=== PATIENT | female | born 1995 | race Caucasian/White ===

== ENCOUNTER 2022-01-21 06:14 | Emergency (ER) | payer MEDICAID ==
[~2022-01-21] VITALS: Ht 154.9 cm; Wt 63.5 kg
[2022-01-21 06:20] VITALS: BP_SYST 73; BP_SYST 89; BP_DIAS 58
--- NOTE | 2022-01-21 06:20 | NUR ---
TO BED VIA W/C
--- NOTE | 2022-01-21 06:44 | NUR ---
26 YO F BIBS W C/O OF SORE THROAT FOR 3 DAYS. DENIES COUGH, N/V/D. NO FEVER CURRENTLY. TOOK TYLENOL YESTERDAY WITH NO RELIF. PMH: DENIES MEDS: DENIES NKDA
[2022-01-21] MEDS ORDERED: BENZ-300 PO (06:55)
[2022-01-21] MEDS ORDERED: AZIT250T4 PO (06:55)
[2022-01-21] MEDS ORDERED: PRED50TA2 PO (06:55)
--- NOTE | 2022-01-21 07:08 | NUR ---
Patient discharged with v/s stable. Written and verbal after care instructions given and explained. Patient alert, oriented and verbalized understanding of instructions. Ambulatory with steady gait. All questions addressed prior to discharge. ID band removed. Patient advised to follow up with PMD. Rx of Z PACK, CEPACOL, PREDNISONE given. Patient educated on indication of medication including possible reaction and side effects. Opportunity to ask questions provided and answered.
== END 2022-01-21 07:08 | disposition home or self-care (01) ==
LOC: MED 06:14
DX: J36 Peritonsillar abscess (principal); Z79.899 Other long term (current) drug therapy; Z79.2 Long term (current) use of antibiotics
CPT/HCPCS: 99283

== ENCOUNTER 2022-08-13 22:30 | Emergency (ER) | payer MEDICAID ==
[~2022-08-13] VITALS: Ht 152.4 cm; Wt 61.2 kg
[~2022-08-13 22:30] MED LIST: AZIT250T4 PO; BENZ-300 PO; PRED50TA2 PO
[2022-08-13 23:03] VITALS: BP 110/72
--- NOTE | 2022-08-13 23:06 | NUR ---
TO LOBBY A/W BED AMBULATORY
[2022-08-14 01:25] LABS: APPEARANCE,URINE CLOUDY (CLEAR); BILIRUBIN,URINE NEGATIVE (NEGATIVE); BLOOD, URINE 2+ (NEGATIVE); COLOR,URINE YELLOW (YELLOW); LEUKOCYTE ESTERASE ,URINE 2+ (NEGATIVE); NITRITE, URINE POSITIVE (NEGATIVE); UGLUCOSE NEGATIVE (NEGATIVE)
[2022-08-14 01:28] LABS: RBC,URINE 0-5 /HPF (0-5)
[2022-08-14 01:29] LABS: WBC,URINE TOO MANY TO COUNT /HPF (0-5)
--- NOTE | 2022-08-14 01:44 | NUR ---
PATIENT LEFT WITHOUT BEING SEEN BY DR. MCKEON. NO FURTHER CARE PROVIDED FOR PATIENT.
[2022-08-16] MEDS ORDERED: CIPR500T4 PO (12:40)
== END 2022-08-14 01:44 | disposition left against medical advice (07) ==
LOC: MED 22:30
DX: R10.30 Lower abdominal pain, unspecified (principal); Z53.21 Procedure and treatment not carried out due to patient leaving prior to being seen by health care provider
CPT/HCPCS: 81001; 87086